=== PATIENT | female | born 1995 | race Caucasian/White ===

== ENCOUNTER → 2021-04-26 12:50 | Outpatient (BNVA) | payer OTHER, SELFPAY | PROVIDERS: Family Provider Family Medicine; Visit Provider Emergency Medicine | DX: R05.9 Cough, unspecified (principal); R09.89 Other specified symptoms and signs involving the circulatory and respiratory systems; Z20.822 Contact with and (suspected) exposure to COVID-19; J40 Bronchitis, not specified as acute or chronic | CPT/HCPCS: 87400; 87635 ==

== ENCOUNTER → 2021-09-12 10:17 | Outpatient (BNVA) | payer OTHER, SELFPAY | PROVIDERS: Family Provider Family Medicine; Visit Provider Emergency Medicine | DX: J02.9 Acute pharyngitis, unspecified (principal); H92.03 Otalgia, bilateral | CPT/HCPCS: 87071; 87880 ==